=== PATIENT | male | born 1970 | race Caucasian/White ===

== ENCOUNTER 2019-01-04 10:49 | Day surgery (SDC) | payer BC ==
[~2019-01-04 10:49] MED LIST: CEFAZOLIN 2 Gram 2 GM/50 ML BAG IVPB ONE; CELECOXIB 100 MG CAPSULE PO ONE; FAMOTIDINE 20MG TABLET PO ONE; MECLIZINE 25 MG TABLET PO ONE; METOCLOPRAMIDE 10 MG TABLET PO ONE; VANCOMYCIN 1GM/200ML PREMIX 1 GM/200 ML PIGGYBACK IVPB ONE
[2019-01-04] MEDS ORDERED: DEXAMETHASONE 4 MG/ML 1ML VIAL IVP ONE (10:50)
[2019-01-04] MEDS ORDERED: LIDOCAINE 2% MDV (20MG/ML) 20ML VIAL IV ONE (10:50)
[2019-01-04] MEDS ORDERED: PROPOFOL 10 MG/ML VIAL IV ONE (10:50)
[2019-01-04] MEDS ORDERED: MIDAZOLAM HCL 2MG/2ML VIAL IV ONE (10:50)
[2019-01-04] MEDS ORDERED: ROPIVACAINE HCL (NAROPIN) /PF 5MG/ML 20ML VIAL IV ONE (10:50)
[2019-01-04] MEDS ORDERED: PHENYLEPHRINE HCL 10 MG/ML VIAL IVP ONE (10:50)
[2019-01-04] MEDS ORDERED: RINGERS SOLUTION,LACTATED 1,000 ML IV ONE ×2 (11:01→12:11)
[2019-01-04 11:47] LABS: ABO GROUP A; ANTIBODY SCREEN NEGATIVE (NEGATIVE); RH TYPE NEGATIVE
[2019-01-04] MEDS ORDERED: BUPIVACAINE 0.5% W/EPI MPF 30 ML VIAL SQ ONE (12:56)
[2019-01-04] MEDS ORDERED: TRANEXAMIC ACID 1,000 MG/10 ML ML IU ONE (12:56)
[2019-01-04] MEDS ORDERED: TRANEXAMIC ACID 1,000 MG/10 ML ML IV ONE (12:56)
[2019-01-04] MEDS ORDERED: ZOLPIDEM TARTRATE 5 MG TABLET PO PRN (14:14)
[2019-01-04] MEDS ORDERED: KETOROLAC 30 MG/ML VIAL IVP ONE (14:14)
[2019-01-04] MEDS ORDERED: AL HYDROX/MAG HYDROX 30ML UD PO PRN (14:14)
[2019-01-04] MEDS ORDERED: NALOXONE 0.4 MG/1 ML VIAL IVP PRN (14:14)
[2019-01-04] MEDS ORDERED: BISACODYL 10 MG SUPP RC PRN (14:14)
[2019-01-04] MEDS ORDERED: HYDROMORPHONE HCL 2 MG/ML VIAL IM PRN ×2 (14:14→21:03)
[2019-01-04] MEDS ORDERED: HYDROCODONE/APAP 10/325 TABLET PO PRN (14:14)
[2019-01-04] MEDS ORDERED: ACETAMINOPHEN 325 MG TAB PO PRN (14:14)
[2019-01-04] MEDS ORDERED: MAGNESIUM HYDROXIDE 30 ML UDC PO PRN (14:14)
[2019-01-04] MEDS ORDERED: TRAMADOL HCL 50 MG TABLET PO PRN (14:14)
[2019-01-04] MEDS ORDERED: ONDANSETRON HCL IV 4 MG/2 ML VIAL IVP PRN (14:14)
[2019-01-04] MEDS ORDERED: DIPHENHYDRAMINE HCL 25 MG CAPSULE PO PRN (14:14)
[2019-01-04] MEDS ORDERED: POTASSIUM CHLORIDE/D5-0.9%NACL 20 MEQ/1,000 ML BAG IV SCH (15:00)
[2019-01-04] MEDS: HYDROCODONE/APAP 10/325 TABLET PO PRN ×2 (16:54→20:43)
[2019-01-04] MEDS: HUMULIN R 100 UNIT/ML VIAL SQ SCH (17:10)
--- NOTE | 2019-01-04 17:11 | Rehab Evaluation ---
Patient Information - Patient Information Diagnosis: L knee DJD Ordered Treatment: PT Evaluate and Treat Status: Initial Evaluation Surgery: Yes (L TKA) Date of Surgery: 01/04/19 Past Medical/Surgical Hx: PAST MEDICAL/SURGICAL HISTORY Past Surgical History ACL RECONSTRUCTION LEFT KNEE MULTIPLE SCOPES LEFT KNEE MIYA QUAD BYPASS 2016 EGD PMH - Respiratory Hx Respiratory Disorders Yes Hx Bronchitis Yes: NOTHING RECENT PMH - Cardiovascular Hx Cardiovascular Disorders Yes Hx Abnormal EKG Yes Hx Cardiac Catheterization Yes Hx Heart Attack Yes: 2015 Hx Hypertension Yes: FAIR CONTROL ON MEDS Hx Coronary Artery Disease Yes Hx Coronary Artery Bypass Yes: QUAD 2016 Graft Exercise Tolerance Good PMH - Neuro Hx Neurological Disorders Yes Hx Headaches Yes: OCCASSIONALLY PMH - GI Hx Gastrointestinal Disorders Yes Hx Gastroesophageal Reflux Yes: FAIR CONTROL ON MEDS PMH - Hx Genitourinary Disorders No PMH - Endocrine Hx Endocrine Disorders Yes Hx Diabetes Yes: DX'D MANY YEARS AGO Hx of NIDDM Yes Comment: DOESNT CHECK BLOOD SUGARS LAST A1C 7.9 PMH - Musculoskeletal Hx Musculoskeletal Disorders Yes Hx Arthritis Yes: LEFT KNEE, HANDS Hx Gout Yes PMH - Psych Hx Psychiatric Problems Yes Hx Depression Yes PMH - Hematology/Oncology Hx Hematology/Oncology Yes Disorders Hx Blood Transfusion Reaction No Premorbid Status: Detail (The patient was independent with all mobility prior to surgery.) Social History: Detail (The patient lives alone in an apartment with 20 steps at the enterance and one handrail. The bathroom is equipped with : a tub/shower combination, hand held shower, standard height toilet. There are no grab bars present in the bathroom. The patient has crutches.) Precautions: [place], Fall, Other (WBAT on the L LE.) - Time With Patient Total Time Spent With Patient (Min): 25 Treatment Procedures: Detail Subjective Information - Subjective Information Per Patient (The patient had complaints of level 10 pain primarily in L hip.) Objective Data - Mental Status Patient Orientation: Oriented x3 - Visual Perception Appears within normal limits for therapeutic activities - ROM Not within normal limits (The patient's L knee is limited s/p surgery. All other LE AROM is WNL.) - Strength/Tone Not within normal limits (The patient's LE strength was not tested however, was functional.) - Bed Mobility Independent (The patient was independent with supine to and from sit and scooting up in bed.) - Transfers Independent (The patient was independent with sit to and from stand transfer.) - Balance Balance Sitting: Good Balance Standing: Good - Sensation Intact - Gait Detail (The patient ambulated around bed to chair aprox. 15 feet with CG for safety with crutches and TTWB on L LE (TTWB due to pain complaints). The patient did have reports of decreased pain with ambulation and sat in chair apox 4 minutes before complaining of nausea. Patient returned to bed. Ice packs were in place and call light was within reach. RN was contacted and returned with pain medications.) Therapy Assessment - Therapy Assessment Detail (Patient was independent with bed mobility and transfers. Ambulation was limited secondary to pain complaints. Feel the patient will porgress well once pain is controlled.) Problem List - Problem List Physical Therapy Problem List: Detail (1) Decreased L knee AROM 2) Decreased L LE strength) Goals - Goals Physical Therapy Goals: 1) The patient will ambulate community distances WBAT on the L LE independently with appropriate distances. 2) The patient will ambulate on a flight of stairs using proper technique with supervision for safety. 3) The patient will be independent with TKA HEP.
[2019-01-04] MEDS: DEXTROSE 5 % AND 0.9 % NACL 1,000 ML IV PRN (19:45)
[2019-01-04] MEDS: CEFAZOLIN 2 Gram 2 GM/50 ML BAG IVPB SCH (19:58)
[2019-01-04] MEDS ORDERED: ATORVASTATIN 20 MG TABLET PO SCH (22:00)
[2019-01-04] MEDS: LOSARTAN POTASSIUM 25 MG TABLET PO SCH (22:12)
[2019-01-04] MEDS: DOCUSATE SODIUM 100 MG CAPSULE PO SCH (22:12)
[2019-01-04] MEDS: METOPROLOL TART 50 MG TABLET PO SCH (22:13)
[2019-01-04] MEDS: METFORMIN 500 MG TABLET PO SCH (22:13)
[2019-01-05] MEDS: HYDROCODONE/APAP 10/325 TABLET PO PRN ×3 (03:33→13:28)
[2019-01-05] MEDS: DEXTROSE 5 % AND 0.9 % NACL 1,000 ML IV PRN (03:34)
[2019-01-05] MEDS: CEFAZOLIN 2 Gram 2 GM/50 ML BAG IVPB SCH ×2 (03:37→11:20)
[2019-01-05 06:40] LABS: HEMATOCRIT 36.9 % (42.0-52.0); HEMOGLOBIN 12.2 gm/dl (14.0-18.0)
[2019-01-05 06:55] LABS: BLOOD UREA NITROGEN 18 mg/dL (6-20); EST GLOMERULAR FILTRATION RATE > 60 mL/min; GLUCOSE,RANDOM 292 mg/dL (74-109)
[2019-01-05] MEDS ORDERED: PANTOPRAZOLE SODIUM 40 MG TABLET PO SCH (07:00)
[2019-01-05] MEDS: HUMULIN R 100 UNIT/ML VIAL SQ SCH ×2 (07:31→11:07)
[2019-01-05] MEDS: LOSARTAN POTASSIUM 25 MG TABLET PO SCH (09:15)
[2019-01-05] MEDS: DOCUSATE SODIUM 100 MG CAPSULE PO SCH (09:15)
[2019-01-05] MEDS: METOPROLOL TART 50 MG TABLET PO SCH (09:15)
[2019-01-05] MEDS: METFORMIN 500 MG TABLET PO SCH (09:15)
--- NOTE | 2019-01-05 09:58 | Rehab Evaluation ---
Patient Information - Patient Information Diagnosis: L knee DJD Ordered Treatment: OT Evaluate and Treat Status: Initial Evaluation Surgery: Yes (L TKA) Date of Surgery: 01/04/19 Past Medical/Surgical Hx: PAST MEDICAL/SURGICAL HISTORY Past Surgical History ACL RECONSTRUCTION LEFT KNEE MULTIPLE SCOPES LEFT KNEE MIYA QUAD BYPASS 2016 EGD PMH - Respiratory Hx Respiratory Disorders Yes Hx Bronchitis Yes: NOTHING RECENT PMH - Cardiovascular Hx Cardiovascular Disorders Yes Hx Abnormal EKG Yes Hx Cardiac Catheterization Yes Hx Heart Attack Yes: 2016 Hx Hypertension Yes: FAIR CONTROL ON MEDS Hx Coronary Artery Disease Yes Hx Coronary Artery Bypass Yes: QUAD 2016 Graft Exercise Tolerance Good PMH - Neuro Hx Neurological Disorders Yes Hx Headaches Yes: OCCASSIONALLY PMH - GI Hx Gastrointestinal Disorders Yes Hx Gastroesophageal Reflux Yes: FAIR CONTROL ON MEDS PMH - Hx Genitourinary Disorders No PMH - Endocrine Hx Endocrine Disorders Yes Hx Diabetes Yes: DX'D MANY YEARS AGO Hx of NIDDM Yes Comment: DOESNT CHECK BLOOD SUGARS LAST A1C 7.9 PMH - Musculoskeletal Hx Musculoskeletal Disorders Yes Hx Arthritis Yes: LEFT KNEE, HANDS Hx Gout Yes PMH - Psych Hx Psychiatric Problems Yes Hx Depression Yes PMH - Hematology/Oncology Hx Hematology/Oncology Yes Disorders Hx Blood Transfusion Reaction No Premorbid Status: Detail (The patient was independent with all ADLs and functional mobility prior to surgery.) Social History: Detail (The patient lives alone in an apartment with 20 steps at the entrance with a R side handrail. The bathroom is equipped with a tub/shower combination, shower chair, hand held shower, and standard height toilet. There are no grab bars present in the bathroom. The patient has crutches and his will be getting him a walker.) Precautions: [employer], Fall, Other (WBAT on the L LE.) - Time With Patient Total Time Spent With Patient (Min): 18 (1 eval low) Treatment Procedures: Detail (OT eval: low complexity) Subjective Information - Subjective Information Per Patient (Ok to see per RN Ankur. Pt agreeable to OT eval.) Objective Data - Pain Pain Present: Yes Pain Scale Used: Numeric (1 - 10) (6/10, just received [place], educated Pt on benefits of ice for knee to decrease swelling/pain) - Mental Status Patient Orientation: Oriented x3 - Visual Perception Appears within normal limits for therapeutic activities - ROM Within normal limits (B UE) - Strength/Tone Within normal limits - Coordination Appears within normal limits for therapeutic activities - Bed Mobility Independent - Transfers Independent (Sit-stand to FWW, good balance, no safety concerns) - Balance Balance Sitting: Good Balance Standing: Fair (walker support in standing) - Sensation Intact - Gait Detail (Functional mobility within bedroom with FWW, good balance and safety awareness.) - ADL's/IADL's Detail (OT educates Pt on techniques for LB dressing, kitchen and bathroom safety upon DC, Pt demos/verbalizes understanding. [place] at baseline, therapist educates Pt on benefits of seated showers initially at [place]. Also educated Pt on where to obtain suction grab bar for shower safety.) Therapy Assessment - Therapy Assessment Detail (Pt demos safety and MOD I with LB dressing and verbalizes safe technique for home tasks with good safety awareness.) Patient Education - Patient Education Teaching Topic: Other (modified tech for I/ADLs) Response: Return Demonstration, Verbalize Understanding Teaching Method: Discussion, Demonstration Teaching Recipient: Patient Barriers To Learning: None Problem List - Problem List Physical Therapy Problem List: Detail (1) Decreased L knee AROM 2) Decreased L LE strength) Occupational Therapy Problem List: Detail (No further skilled IP OT needs identified.) Goals - Goals Physical Therapy Goals: 1) The patient will ambulate community distances WBAT on the L LE independently with appropriate distances. 2) The patient will ambulate on a flight of stairs using proper technique with supervision for safety. 3) The patient will be independent with TKA HEP. Occupational Therapy Goals: No further skilled IP OT needs/goals identified. Prognosis - Prognosis Good Plan - Plan Occupational Therapy Plan: No further skilled IP OT needs identified, [place] OT services. Thank you for this referral.
[2019-01-05] MEDS ORDERED: FERROUS SULFATE 325 MG TAB PO SCH (10:00)
[2019-01-05] MEDS ORDERED: RIVAROXABAN 10 MG TABLET PO SCH (10:00)
[2019-01-05] MEDS ORDERED: GLIMEPIRIDE 2 MG TABLET PO SCH (10:00)
--- NOTE | 2019-01-05 10:08 | Physical Therapy Tx Note ---
Physical Therapy Tx Note - Treatment Note Tolerated: Good Total Time Spent With Patient: 25 Physical Therapy Tx Note: Detail (The patient was up in chair when PT arrived. The patient ambulated with front wheeled walker a distance of 108 feet x 1 with WBAT on the L LE independently. The patient ambulated on a flight of 3 steps, 7 steps and 3 steps with use of one railing and one crutch with supervision for safety only. The patient's TKA HEP was reviewed and patient exhibited good understanding of the following: quad sets, hamstring sets, ankle pumps, gluteal sets, seated heel slides and SLR. The patient has met all inpatient PT goals and is discharged from inpatient PT.) Physical Therapy Problem List: Detail (1) Decreased L knee AROM 2) Decreased L LE strength) Physical Therapy Goals: 1) The patient will ambulate community distances WBAT on the L LE independently with appropriate distances.(Goal Met). 2) The patient will ambulate on a flight of stairs using proper technique with supervision for safety.(Goal Met). 3) The patient will be independent with TKA HEP.(Goal Met) Physical Therapy Plan: The patient is discharged from inpatient PT and is to continue with Home PT.
--- NOTE | 2019-01-05 15:30 | Operative Note ---
DATE OF SURGERY: 01/04/2019 PREOPERATIVE DIAGNOSIS: End-stage arthrosis of the left knee. POSTOPERATIVE DIAGNOSIS: End-stage arthrosis of the left knee. OPERATION: 1. Cemented left total knee arthroplasty using [employer] II components with a size 7 Oxinium femur, a size 7 stemmed tibia baseplate, a 9 mm lipped highly crosslinked tibial insert, and a 35 mm all-plastic patella. 2. Removal of deep buried hardware of the proximal tibia. STAFF SURGEON: Donta Huerta MD INSTRUMENTAL MUSICIAN: Mrs. Kalyn Nath ANESTHESIA: Spinal. PREPARATION: Chloraprep. INDIVIDUAL CONSIDERATIONS: None. PROCEDURE: The patient was taken to the operating room, placed supine on the operating room table. He had a successful induction of a general anesthetic. His left lower extremity was prepped and draped in the usual fashion. The limb was elevated and tourniquet was inflated to 250 mmHg. The patient had a midline approach to the knee, the distal half, used the previous scar. Sharp dissection carried down through skin and subcutaneous tissue. Small veins were coagulated with a Bovie. A medial arthrotomy was performed. The patella was everted and the knee was flexed. He had exposed bone in the patellofemoral and especially lateral compartments and some in the medial compartment. Remaining fat pad was resected, ACL was sacrificed, and provisional anterior meniscectomies were performed. The capsule was released from the medial proximal tibia. Subperiosteally, I was able to find the medial ACL screw, and this was easily removed. The initial femoral line pilot hole was then made freehand. The intramedullary femoral cutting jig was placed. It was cut in 7.0 degrees of valgus and adjusted for rotation and secured with pins for a 10 mm resection. The initial transverse cut was then made. The skin guide was placed in the anterior and posterior line pilot holes. It was found that a size 7 would be appropriate. The anterior and posterior cuts followed by chamfer cuts were made. Osteophytes removed, and a size 7 trial was placed and found to fit well. The tibia was brought forward, and the remainder of the meniscal remnants removed with a Bovie. The extraarticular tibial cutting jig was placed. It was cut in neutral with a 3-degree AP slope. Care was taken to adjust for rotation and flexion using the extraarticular alignment guide and bony landmarks. It was set for a 9 mm resection keyed off the high lateral side. When cutting the tibia, care was taken to preserve the PCL insertion on the tibia. Large osteophytes were removed, and after that I was able to fit a size 7 trial. It was adjusted for rotation and secured with pins. With a 9 mm trial and femoral trial, there was excellent motion and stability, ligamentous balance, and rotation alignment were normal. No lateral release was required. The patient had a thick patella and roughly 9 mm of bone was removed freehand. I could easily fit a 35 patella. The 3 line pilot holes were drilled. The tourniquet was let down briefly to get bleeders posteriorly and then placed back up again. The knee was then thoroughly irrigated out with pulsatile Betadine and saline to remove any visual or palpable debris. Bony surfaces were then dried. A size 7 stemmed tibia baseplate was cemented into place followed by impaction of the 9 mm lipped highly crosslinked tibial insert followed by cementing in the size 7 Oxinium femur followed by cementing in the 35 mm patella. The implant surfaces were compressed, excess cement was removed. After the cement had set, there was excellent motion and stability, ligamentous balance, rotation alignment, and patellofemoral tracking were normal. No lateral release was required. Again thorough irrigation to remove any visual or palpable debris. Tourniquet was let down. Hemostasis was obtained with a Bovie. I then infiltrated the skin and subcutaneous tissue with 30 mL of 0.5% Marcaine with epinephrine. The capsule was then closed with a running #2 quill, subcu was closed in layers with running 0 quill, skin was closed with destiney. Then 1 g of tranexamic acid was mixed with 30 mL of saline and injected into the knee through a sterile 18-gauge needle, and a sterile bulky compressive ALVARO-type dressing was applied. The patient tolerated the procedure well. Needle and sponge counts were correct. Estimated blood loss was 75 mL. He was taken back to recovery in good condition. There were no complications. RIGO
== END 2019-01-05 14:40 | disposition home or self-care (01) ==
LOC: SUR 10:49 → MEDSURG 14:51 → SUR 01-05 14:40
PROVIDERS: ATTEND Orthopaedic Surgery
DX: M17.12 Unilateral primary osteoarthritis, left knee (principal); E11.9 Type 2 diabetes mellitus without complications; I10 Essential (primary) hypertension; E78.00 Pure hypercholesterolemia, unspecified; L40.9 Psoriasis, unspecified; I25.10 Atherosclerotic heart disease of native coronary artery without angina pectoris; Z95.1 Presence of aortocoronary bypass graft; I25.2 Old myocardial infarction; K21.9 Gastro-esophageal reflux disease without esophagitis
CPT/HCPCS: 27447; 20680; 01402; 64447; 84132; 85018; 85014; 80048; 36416; 82948; 86900; 86901; 86850; J1170; J0690 ×2; J3490 ×2; J2795; J3370; 76942; J2370; J7042; J7120